=== PATIENT | male | born 1945 | race Hispanic/Latino ===

== ENCOUNTER 2018-05-12 18:55 | Observation (INO) | payer MEDICARE ==
[2018-05-12 19:30] LABS: #Basophils 0.1 thou/uL (0.0-0.2); #Eosinphils 0.1 thou/uL (0.0-0.7); #Lymphocytes 2.2 thou/uL (1.20-3.40); #Monocytes 0.7 thou/uL (0.11-0.59); #Neutrophils 7.1 thou/uL (1.40-6.50); %Basophils 0.6 % (0.0-1.0); %Eosinophils 0.8 % (0.0-10.0); %Lymphocytes 21.7 % (21.0-51.0); Hemoglobin 12.2 g/dL (14.0-18.0); Mean Corpuscular HGB CONC 35.1 g/dL (32.0-36.0); Mean Corpuscular Hemoglobin 29.9 pg (27.0-31.0); Mean Corpuscular Volume 85.3 fL (78.0-98.0); Mean Platelet Volume 8.6 fL (7.4-10.4); Platelet Count 192 thou/uL (130-400); RBC Distribution Width 12.2 % (11.5-14.5); Red Blood Cell (RBC) Count 4.09 mill/uL (4.70-6.10); White Blood Cell (WBC) Count 10.2 thou/uL (4.8-10.8)
[2018-05-12 19:56] LABS: CKMB 2.2 ng/mL (0-6.6); Troponin I Less than 0.010 ng/mL (< 0.028)
[2018-05-12 19:58] LABS: ALT (SGPT) 40 U/L (8-55); AST (SGOT) 34 U/L (5-34); Albumin 4.2 g/dL (3.4-4.8); Alkaline Phosphatase 129 U/L (40-150); Anion Gap 15 mmol/L (10-20); BUN (Urea Nitrogen) 15 mg/dL (8.4-25.7); Bilirubin, Total 0.3 mg/dL (0.2-1.2); CK (CPK) 273 U/L (30-200); Calc. Creatinine Clearance 0 mL/min (70-130); Calcium 9.2 mg/dL (7.8-10.44); Carbon Dioxide 22 mmol/L (23-31); Chloride 103 mmol/L (98-107); Estimated GFR-MDRD 64; Globulin 3.1 g/dL (2.4-3.5); Glucose 91 mg/dL (83-110); Lipase 131 U/L (8-78); Potassium 4.1 mmol/L (3.5-5.1); Protein, Total 7.3 g/dL (5.8-8.1); Sodium 136 mmol/L (136-145)
--- NOTE | 2018-05-12 21:29 | RAD ---
PORTABLE AP CHEST X-RAY 05/12/18 HISTORY: Chest pressure which started at 3 p.m. today. Chest pain. COMPARISON: 07/19/13. FINDINGS: Postsurgical changes related to median sternotomy are again seen. Vascular calcifications are seen in the thoracic aorta. The cardiac silhouette is magnified by projection. Pulmonary vasculature is with in normal limits. There is no focal consolidation or pleural fluid. However, there does appear to be slight increased interstitial density at the right lung base and findings could be related to superim position of structures including vasculature, but developing infiltrate at the right lung base is a p ossibility. Followup chest x-ray is recommended. Left lung is clear. No other interval change. IMPRESSION: Mild increased interstitial densities at the right lung base probably related to superimposition of s tructures, but due to slight asymmetry compared to left lung base, developing infiltrate cannot be ex cluded. Followup PA and lateral chest x-ray is recommended. POS: [facility]
[2018-05-12 22:47] LABS: Troponin I Less than 0.010 ng/mL (< 0.028)
[2018-05-13 00:10] VITALS: BMI 30.2
[2018-05-13] MEDS ORDERED: Fluticasone Propionate Nasal Spray 16 gm Bottle NASAL PRN (00:28)
[2018-05-13] MEDS ORDERED: Loratadine 10 MG TAB PO PRN (00:28)
[2018-05-13] MEDS ORDERED: traMADol HCl 50 MG TAB PO PRN (00:28)
[2018-05-13] MEDS ORDERED: Acetaminophen 325 MG TAB PO PRN (00:30)
[2018-05-13] MEDS ORDERED: Ondansetron HCl/PF 4 MG/2 ML Vial IVP PRN (00:30)
[2018-05-13] MEDS ORDERED: Dextrose 50% Abboject 50 ML SYRINGE SLOW IVP PRN (00:34)
[2018-05-13] MEDS ORDERED: HumaLOG 300 UNITS/3 ML VIAL SC PRN (00:34)
[2018-05-13] MEDS ORDERED: Dextrose 5% in Water 1,000 ML IV PRN (00:34)
[2018-05-13 02:07] LABS: Troponin I Less than 0.010 ng/mL (< 0.028)
[2018-05-13 03:27] LABS: #Eosinphils 0.2 thou/uL (0.0-0.7); #Lymphocytes 2.5 thou/uL (1.20-3.40); #Monocytes 0.9 thou/uL (0.11-0.59); #Neutrophils 4.4 thou/uL (1.40-6.50); %Basophils 0.6 % (0.0-1.0); %Eosinophils 2.2 % (0.0-10.0); %Lymphocytes 31.4 % (21.0-51.0); %Neutrophils 54.9 % (42.0-75.0); Hemoglobin 11.5 g/dL (14.0-18.0); Mean Corpuscular Hemoglobin 28.6 pg (27.0-31.0); Mean Corpuscular Volume 86.6 fL (78.0-98.0); Mean Platelet Volume 9.6 fL (7.4-10.4); Platelet Count 177 thou/uL (130-400); RBC Distribution Width 12.4 % (11.5-14.5); Red Blood Cell (RBC) Count 4.02 mill/uL (4.70-6.10)
[2018-05-13 03:36] LABS: Anion Gap 13 mmol/L (10-20); BUN (Urea Nitrogen) 13 mg/dL (8.4-25.7); Calc. Creatinine Clearance 100 mL/min (70-130); Calcium 9.3 mg/dL (7.8-10.44); Carbon Dioxide 23 mmol/L (23-31); Chloride 105 mmol/L (98-107); Estimated GFR-MDRD 84; Glucose 150 mg/dL (83-110); Potassium 3.6 mmol/L (3.5-5.1); Sodium 137 mmol/L (136-145)
[2018-05-13] MEDS ORDERED: Spironolactone 25 MG TAB PO SCH (08:00)
[2018-05-13 08:04] VITALS: BP 131/63
[2018-05-13 08:24] VITALS: TEMP 98.1
--- NOTE | 2018-05-13 08:49 | SS ---
ADMISSION/DISCHARGE NOTE PRIMARY CARE PHYSICIAN: Dr. Lloyd. JOURNEYMAN POWER PLANT OPERATOR: Dr. Claudio. CHIEF COMPLAINT: Chest pressure. HISTORY OF PRESENT ILLNESS: Mr. Rowell is a pleasant 72-year-old gentleman that has a history of joe nary artery disease, diabetes mellitus, and hypertension. He was in his usual state of health until around 2:00 p.m. yesterday when he started feeling some pressure in his chest and felt like his heart beat was irregular. He says he had been cleaning the back of his truck from about 8:00 a.m. to 2:00 p.m. when he stated that he was unable to get a completely cleaned and so he was planning on taking i t to the shop to have it cleaned and this is about when the pressure started. He says it was not estefany lly a pain. He also says he felt a little bit dizzy as well. There was no nausea, no vomiting or di aphoresis. He says that he rested a while and pressure went away on its own but then around 6:00 p.m . it started again. He also says he felt the pressure started again. When asked if this was similar to when he had a previous [place], he says it felt different. He says at that time he did not really hav e pain. He just "fell out of a chair" and was taken to the ER and was found to have coronary artery disease. He denies any reflux symptoms and says he takes Prilosec daily. He has had a cough which s he says was nonproductive and he did feel a funny feeling in his chest when he cough. Otherwise, no other symptoms, no PND, no orthopnea. No lower extremity edema. REVIEW OF SYSTEMS: All systems are reviewed and are negative except that mentioned in the history of present illness. PAST MEDICAL HISTORY: Significant for glaucoma, cataracts, coronary artery disease, diabetes mellitu s, and hypertension. PAST SURGICAL HISTORY: He has had an appendectomy, coronary bypass grafting, cholecystectomy and rec ent hernia repair. SOCIAL HISTORY: He is . He is a former smoker. He quit 2 years ago. He is and kyle s 2 children. FAMILY HISTORY: Significant for diabetes mellitus, kidney disease, heart disease in his mother and f ather. Siblings have diabetes and hypertension. ALLERGIES: No known drug allergies. HOME MEDICATIONS: Include Precose 50 mg t.i.d., Claritin 10 mg daily, Victoza 1.2 units subcu daily, Tramadol 50 mg q.6 as needed, spironolactone 25 mg daily, Prilosec over the counter 20 mg daily, met oprolol 37.5 mg twice daily, lisinopril 5 mg daily, Xalatan 1 drop to each eye at bedtime, isosorbide mononitrate 30 mg daily, NPH insulin 25 units twice a day, glipizide/metformin 5/500 one tablet twic e a day, Flonase nasal spray daily, Plavix 75 mg daily, Lipitor 20 mg at bedtime, aspirin 325 mg a da y. PHYSICAL EXAMINATION: GENERAL: He is alert and oriented. He appears to be in no acute distress. VITAL SIGNS: Blood pressure was 133/67, heart rate 73, respiratory rate of 20, temperature is 97.5 a nd O2 sat was 96% on room air. HEENT: Pupils are equal, round, and reactive. Extraocular muscles are intact. His sclerae are anic teric. Throat no erythema, no exudates. NECK: No adenopathy, no bruits. LUNGS: Clear to auscultation. There is no wheezing, no rales. CARDIOVASCULAR: He has a normal S1, S2. I did not appreciate an S3 or S4. No murmurs, clicks or ru bs. ABDOMEN: Obese, it is soft, it is nontender, nondistended. Positive for bowel sounds. No rebound, no guarding. EXTREMITIES: There is no clubbing, cyanosis, no edema. NEUROLOGIC: The exam is nonfocal with intact muscle strength SKIN AND INTEGUMENT: No skin changes. No rash. LABORATORY RESULTS: Sodium 137, potassium 3.6, chloride is 105, CO2 is 23, BUN of 13, creatinine 0.8 9 and glucose is 150. He has had two troponins which were less than 0.010. EKG was sinus rhythm wit h a right bundle branch block. ASSESSMENT AND PLAN: This is a pleasant 72-year-old gentleman who presents to the emergency room wit h some chest pressure and some mild dizziness. He has a history of hypertension and diabetes mellitu s and as a result was monitored overnight and ruled out. 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 He says it was negative and this was 2 months a go at the [facility]. He also has a orthodontic assistant that he sees regularly over there. T herefore, I suspect since he has been ruled out and has had a recent stress test this need not be rep eated. Therefore, he is stable for discharge as his symptoms have resolved and I suspect it could be related more to the exertion of cleaning the truck possibly, muscle strain or mild dehydration that caused this. He has been instructed to follow up with his primary care physician within a week and i f necessary, he can be referred to see his orthodontic assistant for potential cardiac catheterization.
[2018-05-13] MEDS ORDERED: Metoprolol Tartrate 25 MG TAB PO SCH (09:00)
[2018-05-13] MEDS ORDERED: Enoxaparin Sodium 40 MG/0.4 ML SYRINGE SC SCH (09:00)
[2018-05-13] MEDS ORDERED: Aspirin 325 MG TAB PO SCH (09:00)
[2018-05-13] MEDS ORDERED: NPH, Human Insulin Isophane 300 UNIT/3 ML VIAL SC SCH (09:00)
[2018-05-13] MEDS ORDERED: LIRAGLUTIDE 1.2 UNIT SC SCH (09:00)
[2018-05-13] MEDS ORDERED: Lisinopril 5 MG TAB PO SCH (09:00)
[2018-05-13] MEDS ORDERED: Clopidogrel Bisulfate 75 MG TAB PO SCH (12:00)
[2018-05-13] MEDS ORDERED: Atorvastatin Calcium 20 MG TAB PO SCH (21:00)
[2018-05-13] MEDS ORDERED: Latanoprost 0.005% Ophth Soln 2.5 ml Bottle EA EYE SCH (21:00)
== END 2018-05-13 09:03 | disposition home or self-care (01) ==
LOC: ERS 18:55 → 2SW 21:00
PROVIDERS: ADMIT Hospitalist; ATTEND Hospitalist
DX: R07.89 Other chest pain (principal); I25.10 Atherosclerotic heart disease of native coronary artery without angina pectoris; E11.9 Type 2 diabetes mellitus without complications; I10 Essential (primary) hypertension; Z87.891 Personal history of nicotine dependence; Z79.82 Long term (current) use of aspirin; Z79.02 Long term (current) use of antithrombotics/antiplatelets; Z79.899 Other long term (current) drug therapy
CPT/HCPCS: 71045; 80048; 80053; 82550; 82553; 82962; 83690; 83880; 84484 ×3; 85025 ×2; 93005; 99285; G0378; 36415; 36416; J1650; J1815

== ENCOUNTER 2018-08-23 18:04 | Observation (INO) | payer MEDICARE ==
[2018-08-23 19:13] LABS: Hemoglobin 11.3 g/dL (14.0-18.0); Mean Corpuscular HGB CONC 31.9 g/dL (32.0-36.0); Mean Corpuscular Hemoglobin 23.6 pg (27.0-31.0); Mean Platelet Volume 11.3 fL (7.4-10.4); Platelet Count 231 thou/uL (130-400); RBC Distribution Width 15.2 % (11.5-14.5); Red Blood Cell (RBC) Count 4.79 mill/uL (4.70-6.10); White Blood Cell (WBC) Count 10.8 thou/uL (4.8-10.8)
[2018-08-23 19:20] LABS: ALT (SGPT) 36 U/L (8-55); AST (SGOT) 33 U/L (5-34); Alkaline Phosphatase 148 U/L (40-150); Anion Gap 17 mmol/L (10-20); BUN (Urea Nitrogen) 18 mg/dL (8.4-25.7); Bilirubin, Total 0.2 mg/dL (0.2-1.2); Calc. Creatinine Clearance 0 mL/min (70-130); Calcium 9.1 mg/dL (7.8-10.44); Carbon Dioxide 19 mmol/L (23-31); Chloride 106 mmol/L (98-107); Estimated GFR-MDRD 81; Globulin 3.6 g/dL (2.4-3.5); Glucose 92 mg/dL (83-110); Potassium 3.8 mmol/L (3.5-5.1); Protein, Total 7.6 g/dL (5.8-8.1); Sodium 138 mmol/L (136-145)
[2018-08-23 19:24] LABS: CKMB 1.2 ng/mL (0-6.6); Troponin I Less than 0.010 ng/mL (< 0.028)
[2018-08-23 19:55] LABS: #Basophils 0.1 thou/uL (0.0-0.2); #Eosinphils 0.1 thou/uL (0.0-0.7); #Monocytes 0.8 thou/uL (0.11-0.59); #Neutrophils 7.8 thou/uL (1.40-6.50); %Basophils 1.1 % (0.0-1.0); %Eosinophils 0.8 % (0.0-10.0); %Lymphocytes 18.7 % (21.0-51.0); %Monocytes 7.7 % (0.0-10.0); %Neutrophils 71.8 % (42.0-75.0); Anisocytosis SLIGHT = 6-15 cells (100X) (0-5/hpf); Elliptocytes SLIGHT = 2-5 cells (100X) (0-1/hpf); Hypochromia SLIGHT = 6-15 cells (100X) (0-5/hpf); MDiff Complete? YES; PLT Morphology Comment Appears Adequate
--- NOTE | 2018-08-23 21:10 | RAD ---
SINGLE VIEW OF THE CHEST: 08/23/18 COMPARISON: 05/02/18 HISTORY: Swollen ankle and chest pain. FINDINGS: Single view of the chest shows a normal sized cardiomediastinal silhouette. The patient is status pos t sternotomy. There is no evidence of consolidation, mass, or pleural effusion. IMPRESSION: No evidence of acute cardiopulmonary disease. POS: [facility]
[2018-08-23 22:08] LABS: Troponin I 0.014 ng/mL (< 0.028)
--- NOTE | 2018-08-23 22:55 | ULT ---
LEFT LOWER EXTREMITY VENOUS ULTRASOUND WITH DOPPLER: 08/23/18 HISTORY: Left lower extremity swelling and edema. COMPARISON: None. TECHNIQUE: Garcia scale, color flow, doppler imaging with spectral waveform analysis is performed in the left lowe r extremity venous system. FINDINGS: There is compressibility, presence of flow and augmentation in the common femoral vein, femoral vein and popliteal vein. There is flow and augmentation in the posterior tibial vein. There is flow in the greater saphenous vein and profunda vein. IMPRESSION: No evidence of thrombus in the left lower extremity deep venous system. POS: [facility]
[2018-08-23 23:02] VITALS: BMI 31.8
[2018-08-23] MEDS ORDERED: Ondansetron ODT 4 MG TAB SL PRN (23:37)
[2018-08-23] MEDS ORDERED: Acetaminophen 325 MG TAB PO PRN (23:37)
[2018-08-23] MEDS ORDERED: Ondansetron PF 4 MG/2 ML Vial IVP PRN (23:37)
[2018-08-23] MEDS ORDERED: Dextrose 5% in Water 1,000 ML IV PRN (23:48)
[2018-08-23] MEDS ORDERED: Dextrose 50% Abboject 50 ML SYRINGE SLOW IVP PRN (23:48)
[2018-08-23] MEDS ORDERED: HumaLOG 300 UNITS/3 ML VIAL SC PRN (23:48)
[2018-08-23] MEDS ORDERED: traMADol HCl 50 MG TAB PO PRN (23:58)
[2018-08-24 00:56] LABS: Troponin I 0.015 ng/mL (< 0.028)
--- NOTE | 2018-08-24 02:06 | HP ---
CHIEF COMPLAINT: Chest tightness. HISTORY OF PRESENT ILLNESS: This is a 72-year-old male with past medical history of coronary artery disease, status post CABG, diabetes mellitus type 2, hernia repair, hypertension presenting with ches t tightness. Per the patient, he went to [facility] for left ankle swelling and pain and wh ile patient was at the [facility], patient stated that he started having chest tightness. Patient states that he normally gets chest tightness and per patient's Cardiology told him that he will have some chest discomfort since he had the coronary artery bypass and graft. However, patient states ramon t at this time the chest tightness that he was experiencing was very severe and he thought he was hav ing a heart attack. Patient stated that the stress care physician did EKG and was very worried, so h e was sent to our hospital to be evaluated. Of note, patient was seen in our hospital on 05/12/2018 for chest pressure and feeling of irregular heartbeat. At this time, patient states that he has had stress test 2 months ago and it was normal, but per the patient, he has not had an echo done. Mekhi gaona says that his clinical therapist is Dr. Claudio and he is located at [facility]. Patient's primary ca re physician is Dr. Lloyd. Patient states that the chest pain that he experienced this time around rad iated to the neck and to his jaw, it lasted about 5 minutes. It was localized at the chest and the q uality of the pain was tightness and pressure-like and he felt like he was having a heart attack, but patient denies any fever, chills, dizziness, headaches, chest palpitations, abdominal pain, constipa tion, diarrhea, nausea, vomiting. REVIEW OF SYSTEMS: Positive for chest pressure and tightness, otherwise as documented in the HPI. A ll other systems were reviewed and are negative. PAST MEDICAL HISTORY: Hypertension; coronary artery disease, status post CABG; diabetes mellitus, ty pe 2; history of kidney stones. PAST SURGICAL HISTORY: Hernia repair, CABG x4 vessels, cholecystectomy, appendectomy. PSYCHIATRIC HISTORY: No previous psychiatric history. SOCIAL HISTORY: Patient is a heavy truck mechanic. Patient is a former tobacco user, used to smoke cigarett es, quit less than 10 years ago. Patient denies any alcohol use. Patient denies any illicit drug us e. ALLERGIES: No known drug allergies. CURRENT MEDICATIONS: Patient takes acarbose 50 mg t.i.d., aspirin 325 mg daily, atorvastatin 20 mg d aily, clopidogrel 75 mg daily, Trulicity 0.75 mg/0.5 mL subcutaneous once a week, glipizide 5 mg b.i. d., Novolin 45 units b.i.d., isosorbide mononitrate extended release 30 mg a day, latanoprost, lisino pril 5 mg a day, loratadine 10 mg a day, metoprolol tartrate 25 mg patient takes 1.5 tabs b.i.d., ome prazole 20 mg, spironolactone 25 mg, Triamcinair 0.1% topical as needed. PHYSICAL EXAMINATION: VITAL SIGNS: Blood pressure is 149/79, pulse is 86, respiratory rate of 17, temperature of 98.3, O2 sat of 98 on room air. GENERAL: Patient is lying in bed comfortably, does not appear to have any acute distress. Patient i s speaking in full sentences. Patient was having his meals. HEENT: Normocephalic, atraumatic. Pupils are equally round, reactive to light. Extraocular movemen ts are intact. No scleral icterus. No conjunctival pallor. Mucous membranes are moist. NECK: Trachea is midline. Full range of motion, supple. No tenderness. LUNGS: Clear to auscultation bilaterally. No wheezing, no rales, no rhonchi appreciated. CARDIOVASCULAR: Positive S1, S2. Regular rate and rhythm. No murmurs, no gallops or rubs appreciat ed. Patient has a midsternal scar from previous surgery. ABDOMEN: Soft, nontender, nondistended. Positive bowel sounds in all quadrants. No masses apprecia scott. EXTREMITIES: Upper extremity, patient has 5/5 upper extremity strength, good pulses bilaterally. Lo wer extremity, patient has left ankle edema present about 1+ pitting edema and pain with deep palpati on at the ankle region and patient has decreased range of motion at the left ankle compared to the ri t. Patient has 5/5, right lower extremity strength and good range of motion at the lower extremity . Good pulses bilaterally at the lower extremities. NEUROLOGIC: Cranial nerves II through XII grossly intact. No neurologic deficits noted. SKIN: Referred to lower extremity description. PSYCHIATRIC: Patient is alert, oriented x3, not in acute distress. Normal affect. LABORATORY DATA: WBC is 10.8, hemoglobin is 11.3, hematocrit is 35.4, MCV is 74.0, RDW 15.2. Sodium is 138, potassium is 3.8, chloride is 106, carbon dioxide of 19, anion gap of 17, BUN is 18, creatin ine is 0.92, GFR is 81, glucose is 92. Total bilirubin 0.2, AST 33, ALT is 36. Troponins x3 is 0.01 0, 0.014, 0.015. IMAGIN. Chest x-ray showed no acute cardiopulmonary process. 2. Ankle x-ray showed nonspecific soft tissue swelling, no significant degenerative changes or fract ure. 3. Vascular ultrasound is negative for thrombus in the left lower extremity. ASSESSMENT AND PLAN: This is a 72-year-old male being admitted for 1. Chest tightness, we will rule out acute coronary syndrome. Patient has been given aspirin. We h ave ordered for echo. We will follow up on echo results. We will monitor the patient possibly disch arge the patient in the a.m. if everything comes back negative. We will follow up on cardiac enzymes . EKG in the past, where the patient has a history of right bundle branch block. We will get anothe r EKG. We have compared the previous EKG to the recent EKG and patient will have same EKG, which is unchanged from before. Patient also had a stress test in the past, which has been negative. We will continue to monitor the patient closely. 2. Left lower ankle edema and tenderness. Etiology unclear at this time. Ankle x-ray has been nega tive. We will continue to give patient pain medication and admitting the patient conservatively. 3. We will continue the patient on his current medications and we will monitor the patient closely.
[2018-08-24 04:58] LABS: #Basophils 0.1 thou/uL (0.0-0.2); #Eosinphils 0.1 thou/uL (0.0-0.7); #Lymphocytes 2.4 thou/uL (1.20-3.40); #Monocytes 0.8 thou/uL (0.11-0.59); #Neutrophils 4.2 thou/uL (1.40-6.50); %Eosinophils 1.9 % (0.0-10.0); %Lymphocytes 31.3 % (21.0-51.0); %Monocytes 9.9 % (0.0-10.0); %Neutrophils 55.9 % (42.0-75.0); Hemoglobin 10.6 g/dL (14.0-18.0); Mean Corpuscular HGB CONC 30.9 g/dL (32.0-36.0); Mean Corpuscular Hemoglobin 22.9 pg (27.0-31.0); Mean Corpuscular Volume 74.1 fL (78.0-98.0); Mean Platelet Volume 11.1 fL (7.4-10.4); Platelet Count 211 thou/uL (130-400); RBC Distribution Width 15.1 % (11.5-14.5); Red Blood Cell (RBC) Count 4.64 mill/uL (4.70-6.10); White Blood Cell (WBC) Count 7.6 thou/uL (4.8-10.8)
[2018-08-24 05:02] LABS: Anion Gap 9 mmol/L (10-20); BUN (Urea Nitrogen) 16 mg/dL (8.4-25.7); Calc. Creatinine Clearance 97 mL/min (70-130); Calcium 9.1 mg/dL (7.8-10.44); Carbon Dioxide 26 mmol/L (23-31); Chloride 103 mmol/L (98-107); Estimated GFR-MDRD 79; Glucose 222 mg/dL (83-110); Potassium 4.1 mmol/L (3.5-5.1); Sodium 134 mmol/L (136-145)
[2018-08-24] MEDS ORDERED: Aspirin 325 MG TAB PO SCH ×2 (08:00→09:00)
[2018-08-24] MEDS ORDERED: Enoxaparin Sodium 40 MG/0.4 ML SYRINGE SC SCH (09:00)
[2018-08-24] MEDS ORDERED: Famotidine 20 MG TAB PO SCH (09:00)
[2018-08-24] MEDS ORDERED: Lisinopril 5 MG TAB PO SCH (09:00)
[2018-08-24] MEDS: Metoprolol Tartrate 25 MG TAB PO SCH ×2 (09:03→11:35)
[2018-08-24 09:24] LABS: Iron Binding Capacity, Total 414 mcg/dL (261-462)
[2018-08-24 09:25] LABS: Iron 16 ug/dL (65-175)
[2018-08-24] MEDS ORDERED: Clopidogrel Bisulfate 75 MG TAB PO SCH (12:00)
[2018-08-24] MEDS ORDERED: Iron Sucrose Complex 200 MG in Sodium Chloride 0.9% 250 ML 250 ML IVPB SCH (12:30)
[2018-08-24] MEDS ORDERED: Iron, Sodium Ferric Gluconate 250 MG, Admixture Fee 1 EACH in Sodium Chloride 0.9% 250 ... IVPB SCH (12:30)
[2018-08-24 16:04] VITALS: BP 123/57; TEMP 98.3
[2018-08-24] MEDS ORDERED: Latanoprost 0.005% Ophth Soln 2.5 ml Bottle EA EYE SCH (21:00)
[2018-08-24] MEDS ORDERED: Atorvastatin Calcium 20 MG TAB PO SCH (21:00)
--- NOTE | 2018-08-25 02:45 | DIS ---
DATE OF ADMISSION: 08/24/2018 DATE OF DISCHARGE: 08/24/2018 CONDITION AT THE TIME OF DISCHARGE: Stable and improved. DISCHARGE DIAGNOSES: Remained the same as admission diagnoses. 1. Chest tightness, acute coronary syndrome ruled out. 2. Hypertension. 3. Coronary artery disease. 4. Diabetes. DISCHARGE MEDICATIONS: Same as admission medications. Please see admission history and physical dic tated by Dr. Tejada for further details. No changes were made. PRIMARY CARE PHYSICIAN: Law Coronel M.D. PRIMARY PROJECT DIRECTOR: Jamarcus Brannon D.O. PROCEDURES DONE IN THE HOSPITAL: 1. Transthoracic echocardiogram, which shows EF of 60% to 65% and probably diastolic dysfunction, ot herwise normal echo. 2. Left lower extremity ultrasound, which is negative for DVT. HISTORY OF PRESENTING ILLNESS: Mr. Rowell is a 72-year-old male with past medical history of coronary artery disease, status post CABG; hypertension; diabetes; and history of kidney stone; who presented to the emergency room with complaints of chest tightness. He presented to urgent care with these sy mptoms and was told to come to the [facility] even though his apartment groundskeeper and primary care physician are over at [facility] in [place]. He was seen for similar complaints i our [facility] about 3 months ago on 05/13/2018. Upon presentation, he was hemodynamically stable and cardiac enzyme, EKG, chest x-ray were within nor mal limit. He was admitted for further evaluation. He was hemodynamically stable. Ankle x-ray was done which showed soft tissue swelling without any changes acutely. His labs were within normal sirena maría. Please see admission history and physical for further details. Serial cardiac enzymes were done and he was monitored on telemetry unit. His troponin remained negat otis x3. He was found to be anemic with a hemoglobin of 11.3, which seems to be his baseline. Iron l evels were checked and his iron levels were very low at 16. He was given IV iron prior to discharge. Echo was done and it was unremarkable. The patient was otherwise asymptomatic throughout his hospita lization and there were no adverse events on the tele monitoring either. He was instructed to follow with primary apartment groundskeeper at [facility] and was encouraged to go to [facility] ER as his medical care is over there to prevent unnecessary cost of care. At this ti me, he has no explanation of his symptoms other than that possibly iron deficiency anemia. He will f ollow up with PCP with this regards. He was seen and examined prior to discharge. PHYSICAL EXAMINATION: VITAL SIGNS: This morning, temperature 97.7, heart rate 60, respirations 18, saturating 97% on room air, blood pressure 155/69. GENERAL: No acute distress. CHEST: Clear to auscultation bilaterally. CARDIOVASCULAR: Rate and rhythm is regular. EXTREMITIES: Free of any cyanosis, clubbing, or edema. Discharge hemoglobin 10.6 with microcytic hypochromic indices. Serum chemistry shows blood sugar 194 , otherwise unremarkable. Troponin 0.015.
--- NOTE | 2018-08-27 23:33 | EKG ---
Test Reason : Blood Pressure : / mmHG Vent. Rate : 081 BPM Atrial Rate : 081 BPM P-R Int : 164 ms QRS Dur : 142 ms QT Int : 412 ms P-R-T Axes : 043 -11 051 degrees QTc Int : 478 ms Normal sinus rhythm Right bundle branch block Possible Inferior infarct , age undetermined Abnormal ECG Confirmed by EDWARD OCONNELL, EMILIA ([id number]), editor dictionary KATHY AQUINO ([id number]) on 08/27/2018 11:33:34 PM Referred By: Confirmed By:EMILIA LEON MD
== END 2018-08-24 17:03 | disposition home or self-care (01) ==
LOC: ERS 18:04 → 2SW 21:15
PROVIDERS: ADMIT Internal Medicine; ATTEND Internal Medicine
DX: R07.89 Other chest pain (principal); I25.10 Atherosclerotic heart disease of native coronary artery without angina pectoris; E11.9 Type 2 diabetes mellitus without complications; I10 Essential (primary) hypertension; Z87.891 Personal history of nicotine dependence; Z79.02 Long term (current) use of antithrombotics/antiplatelets; Z79.4 Long term (current) use of insulin; Z79.82 Long term (current) use of aspirin; Z79.899 Other long term (current) drug therapy; Z95.1 Presence of aortocoronary bypass graft
CPT/HCPCS: 71045; 80048; 80053; 82553; 82962 ×2; 83540; 83550; 84484 ×3; 85025 ×2; 93005; 93306; 93971; 96365; 96366; 96372; 99285; G0378 ×2; 36415; 36416; J1650; J2916; J7050

== ENCOUNTER 2020-11-09 20:07 | Inpatient (IN) | payer MEDICARE ==
[2020-11-09 20:58] LABS: #Basophils 0.1 thou/uL (0.0-0.2); #Eosinphils 0.1 thou/uL (0.0-0.7); #Lymphocytes 1.9 thou/uL (1.20-3.40); #Monocytes 0.5 thou/uL (0.11-0.59); #Neutrophils 5.2 thou/uL (1.40-6.50); %Basophils 0.9 % (0.0-1.0); %Eosinophils 1.3 % (0.0-10.0); %Lymphocytes 23.8 % (21.0-51.0); %Monocytes 6.9 % (0.0-10.0); %Neutrophils 67.1 % (42.0-75.0); Hemoglobin 12.4 g/dL (14.0-18.0); Mean Corpuscular HGB CONC 32.4 g/dL (32.0-36.0); Mean Corpuscular Hemoglobin 23.8 pg (27.0-31.0); Mean Corpuscular Volume 73.3 fL (78.0-98.0); Mean Platelet Volume 11.3 fL (7.4-10.4); Platelet Count 208 thou/uL (130-400); RBC Distribution Width 15.9 % (11.5-14.5); Red Blood Cell (RBC) Count 5.22 mill/uL (4.70-6.10); White Blood Cell (WBC) Count 7.8 thou/uL (4.8-10.8)
[2020-11-09 21:17] LABS: ALT (SGPT) 35 U/L (8-55); AST (SGOT) 28 U/L (5-34); Albumin 3.7 g/dL (3.4-4.8); Alkaline Phosphatase 127 U/L (40-110); Anion Gap 17 mmol/L (10-20); Anisocytosis SLIGHT = 6-15 cells (100X) (0-5/hpf); BUN (Urea Nitrogen) 13 mg/dL (8.4-25.7); Bilirubin, Total 0.3 mg/dL (0.2-1.2); Calc. Creatinine Clearance 0 mL/min (70-130); Calcium 8.6 mg/dL (7.8-10.44); Carbon Dioxide 22 mmol/L (23-31); Chloride 103 mmol/L (98-107); Elliptocytes SLIGHT = 2-5 cells (100X) (0-1/hpf); Glucose 218 mg/dL (83-110); Large Platelets SLIGHT; MDiff Complete? YES; Microcytosis SLIGHT = 6-15 cells (100X) (0-5/hpf); Platelet Morphology Comment Appears Adequate; Protein, Total 6.7 g/dL (5.8-8.1); Sodium 138 mmol/L (136-145)
[2020-11-09] MEDS ORDERED: Metoclopramide HCl 10 MG/2 ML VIAL ONE (21:37)
[2020-11-09] MEDS ORDERED: Acetaminophen 500 MG TAB ONE (21:37)
--- NOTE | 2020-11-09 21:59 | RAD ---
PORTABLE CHEST ONE VIEW: 11/09/20 at 9:46 p.m. HISTORY: Left sided chest pain. COMPARISON: 08/23/18. FINDINGS: There are changes of median sternotomy. The heart size is borderline. The lungs are expanded without lobar consolidation, pneumothoraces, cayla pulmonary edema or pleural effusions. IMPRESSION: No acute process. POS: [facility]
--- NOTE | 2020-11-09 22:15 | CT ---
CT BRAIN WITHOUT CONTRAST: HISTORY: Dizziness. Left-sided face pain, left arm pain and left leg pain. FINDINGS: There are changes of cortical atrophy. No evidence of acute infarct, hemorrhage, midline shift or abn ormal extra-axial fluid collections is seen. The ventricular size is appropriate and the basilar cisterns are patent. The bony calvarium is intact. The visualized paranasal sinuses and mastoid air c ells are well aerated. IMPRESSION: No CT evidence of acute intracranial process.
--- NOTE | 2020-11-10 00:11 | PDOC.FPRHP ---
- History of Present Illness Chief Complaint: L arm, jaw pain History of Present Illness: This is a 75yo M with PMH of CAD, DM2, hx of NH with 4 vessel CABG who presents to the ER with CC of left temporal, neck, jaw, arm, and leg pain. This started about 2 days ago when he was watching TV and has been constant, although Tylenol and ASA have helped. Describes pain as dull. He came in today because he felt the pain was getting worse, rating it as 6/10, and tylenol did not help today. He describes an episode of confusion today, as well. He said he was texting a friend when all of a sudden he felt confused and was not able to type out the words, however he was able to talk to his son to tell him he wanted to go to the hospital. He reports some weakness in his left leg. Denies fever, chills, chest pain, abd pain, palpitations, LE swelling. Denies hx of stroke, although his 69yo brother had one 4mo ago. ED Course: Tylenol, Metoclopramide 10mg IV - Allergies/Adverse Reactions Allergies Allergy/AdvReac Type Severity Reaction Status Date / Time No Known Allergies Allergy Verified 11/10/20 09:26 - Home Medications Medication Instructions Recorded Confirmed Type Acarbose [Precose] 50 mg PO TID-WM 07/19/13 08/24/18 History Aspirin 325 mg PO DAILY 07/19/13 08/24/18 History Isosorbide Mononitrate [Imdur ER] 30 mg PO DAILY 07/19/13 08/24/18 History Latanoprost [Xalatan 0.005% Ophth 1 drop EA EYE HS 07/19/13 08/24/18 History Soln] Lisinopril [Zestril] 5 mg PO DAILY 07/19/13 08/24/18 History Loratadine [Claritin] 10 mg PO DAILY 07/19/13 08/24/18 History Metoprolol Tartrate [Lopressor] 37.5 mg PO BID 07/19/13 08/24/18 History Omeprazole Magnesium [Prilosec OTC] 20 mg PO DAILY 07/19/13 08/24/18 History Spironolactone [Aldactone] 25 mg PO DAILY 07/19/13 08/24/18 History traMADol HCl [Ultram] 50 mg PO Q6H PRN 09/07/13 08/24/18 History Clopidogrel Bisulfate [Clopidogrel] 75 mg PO 1200 05/13/18 08/24/18 History Glipizide/Metformin HCl 1 tab PO BID 05/13/18 08/24/18 History [glipiZIDE/metFORMIN HCl] Insulin, Isophane Human (NPH) 60 units SC BID 05/13/18 08/24/18 History [NovoLIN N] Aspirin [Ecotrin Low Strength] 81 mg PO DAILY #30 tab 11/10/20 Rx Atorvastatin Calcium [Lipitor] 40 mg PO HS #30 tab 11/10/20 Rx - History PMHx: CAD, DM2, HTN, NH, hx of kidney stones, glaucoma PSHx: CABG x4, appendectomy, cholecystectomy, hernia repair FHx: brother had stroke at age 69 Social: denies alcohol use, drug use, former tobacco user - quit less than 10 years ago - Review of Systems General: denies: fever/chills, weight/appetite/sleep changes, night sweats, fatigue Eyes: denies: eye pain, vision changes ENT: reports: nasal congestion. denies: rhinorrhea Respiratory: denies: cough, congestion, shortness of breath, exercise intolerance Cardiovascular: reports: orthopnea. denies: chest pain, palpitation, edema, paroxysmal nocturnal dyspnea Gastrointestinal: reports: nausea. denies: vomiting, diarrhea, constipation, abdominal pain, GI bleeding Genitourinary: denies: dysuria Skin: denies: rashes, lesions, jaundice, itching Musculoskeletal: reports: pain. denies: tenderness, stiffness, swelling Neurological: reports: weakness. denies: numbness, syncope, seizure - Vital signs BP: 157/73, MAP: 101, Pulse: 75, Resp: 18, Pain: 3, O2 sat: 96 on (Room Air) - Physical Exam Constitutional: NAD, awake, alert and oriented, well developed HEENT: normocephalic and atraumatic, EOMI, grossly normal vision, grossly normal hearing, MMM -HEENT: L pupil not reactive - would not constrict with ipsi- or contra-lateral exposure to light. R pupil reactive. B/l horizontal nystagmus. Peripheral vision intact, b/l Sensation intact on face b/l No facial droop. Able to resist attempted forceful opening of [place]. Neck: supple, FROM, trachea midline Chest: no-tender to palpation Heart: RRR, normal S1/S2, no murmurs/rubs/gallops, pulses present, no edema Lungs: CTAB, no respiratory distress, good air movement, no rales/rhonchi, no wheezing Abdomen: soft, non-tender, bowel sounds present, no masses/distention, no hernias Musculoskeletal: normal structure, normal tone, ROM grossly normal Neurological: CN II-XII intact, normal sensation -Neurological: No dysmetria on [id number] test. No word-finding difficulty on exam. 5/5 strength in b/l UE and LE. Skin: no rash/lesions, good turgor, capillary refill <2 seconds Heme/Lymphatic: no unusual bruising or bleeding Psychiatric: normal mood and affect, good judgment and insight, intact recent and remote memory FMR H&P: Results - Labs Result Diagrams: 11/09/20 20:30 11/09/20 20:30 Lab results: A1c 9.1 Trops neg x3 BNP 16 Lipid panel: TG 262, HDL 24, otherwise nml WBC 7.8 thou/uL (4.8-10.8) 11/09/20 20:30 Hgb 12.4 g/dL (14.0-18.0) L 11/09/20 20:30 Hct 38.3 % (42.0-52.0) L 11/09/20 20:30 MCV 73.3 fL (78.0-98.0) L 11/09/20 20:30 Plt Count 208 thou/uL (130-400) 11/09/20 20:30 Neutrophils % 67.1 % (42.0-75.0) 11/09/20 20:30 Sodium 138 mmol/L (136-145) 11/09/20 20:30 Potassium 4.0 mmol/L (3.5-5.1) 11/09/20 20:30 Chloride 103 mmol/L (98-107) 11/09/20 20:30 Carbon Dioxide 22 mmol/L (23-31) L 11/09/20 20:30 BUN 13 mg/dL (8.4-25.7) 11/09/20 20:30 Creatinine 0.96 mg/dL (0.7-1.3) 11/09/20 20:30 Glucose 218 mg/dL (83-110) H 11/09/20 20:30 Calcium 8.6 mg/dL (7.8-10.44) 11/09/20 20:30 Total Bilirubin 0.3 mg/dL (0.2-1.2) 11/09/20 20:30 AST 28 U/L (5-34) 11/09/20 20:30 ALT 35 U/L (8-55) 11/09/20 20:30 Alkaline Phosphatase 127 U/L (40-110) H 11/09/20 20:30 Serum Total Protein 6.7 g/dL (5.8-8.1) 11/09/20 20:30 Albumin 3.7 g/dL (3.4-4.8) 11/09/20 20:30 - Radiology Interpretation CT scan - head Status: report reviewed by me (no acute process) Chest x-ray Status: report reviewed by me (no acute process) FMR H&P: A/P - Plan This is a 75M presenting to the ED for L head, arm, leg pain and a transient episode of confusion, admitted for ACS and stroke r/o. Atypical CP - L head, jaw, neck, arm, leg pain while watching TV - Significant heart hx: CAD, NH with 4 vessel CABG - EKG shows complete RBBB and nonspecific T wave changes - On tele - Monitor for recurrence of CP Possible TIA - Episode of confusion and word-finding difficulty - L pupil non-reactive to light - CT head neg for acute findings - CTA w/wo contrast of head and neck pending - MRI brain pending - q4h neuro checks, NIH stroke scale, bedside dysphagia screen, fall precautions - DVT ppx SCDs T2DM - A1c 9.1 - Continue home insulin once regimen confirmed - Moderate and bedtime SSI - Hypoglycemia protocol, ACHS checks - DM education HTN - Continue home meds once med rec'd - Monitor vitals Chronic conditions CAD: continue home meds once med rec'd Glaucoma: continue home meds once med rec'd. Avoid antihistamines, antimuscarinics, beta agonists Hx of renal stones Dispo: stroke obs IVF: None Diet: HH-LS GI ppx: None DVT ppx: SCDs Code: Full PCP: [facility] FMR H&P: Upper Level - Plan Date/Time: 11/10/20 0009 I, Annabelle Velez MD, have evaluated this patient and agree with findings/plan as outlined by digital marketing intern resident. Pertinent changes/additions are listed here. This is a 75yo m here today with CC of left sided pain - pain in his left congregation, arm, and leg. This started about 2-3 days ago. He has taken tylenol intermittently which did help some. Today, he thought it was getting worse which is why he came in. He also reported an episode of confusion earlier today. He states that he was texting a friend and then all of a sudden he couldn't type and he felt confused. He was able to talk to his son normally and explain to him that he wanted to go to the hospital to be checked out. Reports headache and neck pain. Reports hx of pinched nerve in his neck. Denies any chest pain at the time. Denies SOB, palpitations. Hx of heart attack on '05, but this does not feel similar. PE: Neuro exam - less constriction with left pupil. Sensation intact on face, upper, lower extremities. No tongue deviation. Strength 5/5 upper and lower extremities. RRR, CTAB, soft abd, nontender. Will admit patient to stroke, obs to r/o TIA vs CVA. CT brain neg. Will get MRI to evaluate for CVA. CTA head/neck. Atypical chest pain - Trop neg x 1, will trend. No EKG changes. Will continue medications for chronic conditions. Dispo: admit to stroke, obs PCP: Berna ([facility]) Code: Full Case discussed with Dr. Brooks Addendum - Attending - Attending Attestation Date/Time: 11/09/20 2961 I personally evaluated the patient and discussed the management with Dr. Sveta Ashford. I agree with the History, Examination, Assessment and Plan documented above with any addition or exceptions noted below. The patient presented after headache for 2 days followed by episode of confusion and change in sensation in left jaw arm and leg. Will work up for possible stroke with cta head/neck and MRI brain. Trending trops. I did evaluate the patient on 11/09 in the ER.
[2020-11-10 00:26] LABS: Troponin I Less than 0.010 ng/mL (< 0.028)
[2020-11-10] MEDS ORDERED: Ondansetron ODT 4 MG TAB PO PRN (00:41)
[2020-11-10] MEDS ORDERED: Acetaminophen 325 MG TAB PO PRN (00:41)
[2020-11-10] MEDS ORDERED: Acetaminophen 650 MG Suppository PR PRN (00:41)
[2020-11-10] MEDS ORDERED: Ondansetron PF 4 MG/2 ML Vial IVP PRN (00:41)
[2020-11-10] MEDS ORDERED: Dextrose 5% in Water 1,000 ML IV PRN (00:49)
[2020-11-10] MEDS ORDERED: HumaLOG 300 UNITS/3 ML VIAL SC PRN ×2 (00:49)
[2020-11-10] MEDS ORDERED: Dextrose 50% Abboject 50 ML SYRINGE SLOW IVP PRN (00:49)
[2020-11-10] MEDS ORDERED: Aspirin Chewable 81 MG TAB PO SCH (01:00)
[2020-11-10] MEDS ORDERED: Boostrix 0.5 ML (Tdap) VIAL ONE (02:17)
[2020-11-10 03:08] LABS: Hemoglobin A1c 9.1 % (4.0-6.0)
[2020-11-10] MEDS ORDERED: Aspirin Chewable 81 MG TAB ONE ×2 (03:21→08:38)
[2020-11-10 03:44] LABS: Cardiac Risk 4.5 (Less than 4.5)
[2020-11-10 03:47] LABS: Troponin I Less than 0.010 ng/mL (< 0.028)
[2020-11-10 06:21] LABS: SARS-CoV-2 PCR by NAA Not Detected (NotDetected)
--- NOTE | 2020-11-10 08:41 | PDOC.FM ---
- Subjective Subjective: Pt states he is feeling well. No CP. no weakness. He reports he is able to text and communicate well - Objective Result Diagrams: 11/09/20 20:30 11/09/20 20:30 Phys Exam - Physical Examination Constitutional: NAD HEENT: moist MMs, sclera anicteric Neck: supple, full ROM Respiratory: no wheezing, clear to auscultation bilateral Cardiovascular: RRR, no significant murmur Gastrointestinal: soft, non-tender Musculoskeletal: no edema, pulses present Neurological: non-focal, normal sensation, moves all 4 limbs slight slurred speech Psychiatric: normal affect, A&O x 3 Skin: no rash, normal turgor Dx/Plan - Plan Plan: TIA vs. CVA A- Sx of word finding difficulty and pupilary asymetry are resolved. CT head neg for acute findings P- CTA w/wo contrast of head and neck pending - MRI brain pending - q4h neuro checks, NIH stroke scale, bedside dysphagia screen, fall precautions - DVT ppx lovenox - increase home atorvastatin to high dose T2DM A- A1c 9.1. He does not know any of his meds P- Continue home insulin once regimen confirmed. Nurse calling pharmacy - Moderate and bedtime SSI - Hypoglycemia protocol, ACHS checks - DM education HTN - Continue home meds once med rec'd - Monitor vitals Arm pain, resolved -L head, jaw, neck, arm, leg pain while watching TV, resolved. EKG shows complete RBBB and nonspecific T wave changes. Considering significant heart hx: CAD, [place] with 4 vessel CABG, will do ACS workup if he ever develops CP Chronic conditions CAD: continue home meds once med rec'd Glaucoma: continue home meds once med rec'd. Avoid antihistamines, ant imuscarinics, beta agonists Hx of renal stones CODE: FULL Addendum - Attending - Attending Attestation Date/Time: 11/10/20 1650 I personally evaluated the patient and discussed the management with Dr. Felton. I agree with the History, Examination, Assessment and Plan documented above with any addition or exceptions noted below. MRI and CTA ordered to further evaluate symptoms. Pt's nurse is going to attempt to get his med list so that we can restart home meds. A1s is elevated, will need adjustment to diabetic regimen.
[2020-11-10] MEDS ORDERED: Aspirin 81 mg Enteric Coated Tablet PO SCH (09:00)
[2020-11-10 09:26] VITALS: BMI 32.6
--- NOTE | 2020-11-10 09:33 | CT ---
EXAM: CT head without IV contrast CT angiogram head and neck with IV contrast and 3-D reconstructions PROVIDED CLINICAL HISTORY: Left arm and jaw pain. Brief episode of confusion and word finding difficulties. COMPARISON: Noncontrast CT head on 11/09/2020 FINDINGS: Noncontrast CT head: There is no evidence of a hemorrhage, acute cortical infarction, mass effect, or midline shift. Scatt ered minimal hypodensities are seen within the periventricular and subcortical white matter which are nonspecific but likely reflective of mild chronic small vessel ischemic changes. Mild cerebral vo lume loss is present. The ventricular system is normal in size, shape, and position. Small mucous retention cysts present right maxillary antrum. No significant interval change from prio r exam. CT angiogram head and neck: Prominent vascular calcifications are seen in the aortic arch and involving the coronary arteries. Po stoperative changes related to CABG are noted. Common origin of the innominate and left common carotid artery are noted. There is partial obscuratio n of portions of the most proximal left common carotid artery as well as left subclavian artery due to dense venous contrast resulting in artifact through these regions. However, the visualized portion s of the left subclavian artery are patent. The innominate and right subclavian artery are patent. Bilateral common carotid arteries are patent. Minimal vascular calcifications are seen at the carotid artery bifurcations. Bilateral internal carotid arteries are patent. The bilateral vertebral arteries are patent. The left vertebral artery is dominant. The basilar artery and posterior cerebral arteries are patent. Dense vascular calcifications are seen in the carotid siphons. The bilateral middle cerebral and anterior cerebral arteries are patent. No focal stenosis or branch occlusion is seen. No intracranial aneurysm is seen. There were groundglass densities seen throughout the visualized upper lung zones, but this exam is ob tained in expiratory phase imaging, and findings are likely attributable to volume loss. IMPRESSION: 1. No acute intracranial abnormality is demonstrated. 2. No focal stenosis or branch occlusion is seen involving the vertebral basilar system or [place]. 3. Patent bilateral internal carotid arteries.
[2020-11-10] MEDS ORDERED: Enoxaparin Sodium 40 MG/0.4 ML SYRINGE ONE (09:36)
[2020-11-10] MEDS ORDERED: Iopamidol-370 76% 500 ML 1 ML ONE (09:44)
[2020-11-10] MEDS: Enoxaparin Sodium 40 MG/0.4 ML SYRINGE SC SCH (09:47)
--- NOTE | 2020-11-10 10:48 | MRI ---
EXAM: MRI Brain WO Con PROVIDED CLINICAL HISTORY: Brief episode of confusion and word finding difficulties. This has now resolved. Coronary artery dise ase. COMPARISON: CT head 11/10/2020 FINDINGS: There are scattered punctate and patchy areas of increased FLAIR and T2-weighted signal intensity wit hin the periventricular and subcortical white matter which are nonspecific but likely reflective of chronic small vessel ischemic changes. No areas of restricted diffusion are seen to suggest an acute infarction. There is a linear area of decreased signal intensity within the inferior left frontal lobe on gradient echo sequence and on T2-weighted imaging may be related to site of prior hemorrhage with hemosiderin deposition in this region. The septum pellucidum and third ventricle are in the midline. Mild cerebral volume loss is present. T he ventricular system is normal in size, shape, and position for the degree of sulcal atrophy. Distal left vertebral artery flow-void is dominant compared to the right. There are otherwise appropr iate flow voids involving the large intracranial vessels at the base of the brain. [place] lenses are not visualized. Minimal mucosal thickening is seen in a few ethmoidal air cells. The mastoid effusions are present on the left. Meniscal base has a normal MRI appearance. IMPRESSION: 1. No acute intracranial abnormality demonstrated. 2. Chronic small vessel ischemic changes and cerebral volume loss. 3. Linear area of hemosiderin deposition inferior left anterior frontal lobe.
[2020-11-10] MEDS ORDERED: Clopidogrel Bisulfate 75 MG TAB ONE (16:21)
[2020-11-10] MEDS: Clopidogrel Bisulfate 75 MG TAB PO SCH (16:22)
[2020-11-10] MEDS ORDERED: HumaLOG 300 UNITS/3 ML VIAL ONE (16:54)
[2020-11-10] MEDS: glipiZIDE 5 MG TAB PO SCH (20:30)
[2020-11-10] MEDS: Metoprolol Tartrate 25 MG TAB PO SCH (20:30)
[2020-11-10] MEDS: metFORMIN 500 MG TAB PO SCH (20:30)
[2020-11-10] MEDS: NPH, Human Insulin Isophane 300 UNIT/3 ML VIAL SC SCH (20:31)
[2020-11-10] MEDS ORDERED: METFORMIN PO SCH (21:00)
[2020-11-10] MEDS ORDERED: GLIPIZIDE PO SCH (21:00)
[2020-11-10] MEDS ORDERED: Latanoprost 0.005% Ophth Soln 2.5 ml Bottle EA EYE SCH (21:00)
[2020-11-10] MEDS ORDERED: [UNRECOGNIZED DRUG - OTHER] PO SCH (21:00)
[2020-11-10] MEDS ORDERED: Atorvastatin Calcium 40 MG TAB PO SCH (21:00)
--- NOTE | 2020-11-11 06:26 | PDOC.FM ---
- Subjective Subjective: Patient sitting up in bed and has no complaints. Denies dysarthria, slurred speech, CP, SOB, vision changes. - Objective MAR Reviewed: Yes Vital Signs & Weight: Vital Signs (12 hours) Temp Pulse Resp BP Pulse Ox 11/11/20 04:00 98.5 F 71 16 134/71 96 11/11/20 00:08 145/70 H 11/10/20 20:09 97.4 F L 67 16 168/76 H 100 11/10/20 20:00 100 Weight Weight 97.4 kg Result Diagrams: 11/09/20 20:30 11/09/20 20:30 Phys Exam - Physical Examination Constitutional: NAD HEENT: PERRLA, moist MMs Neck: no nodes, full ROM Respiratory: no wheezing, clear to auscultation bilateral Cardiovascular: RRR, no significant murmur Gastrointestinal: soft, non-tender, positive bowel sounds Musculoskeletal: no edema, pulses present Neurological: moves all 4 limbs Psychiatric: normal affect, A&O x 3 Dx/Plan - Plan Plan: likely TIA A- Sx of word finding difficulty and pupilary asymetry are resolved. CT head neg for acute findings P- CTA w/wo contrast of head and neck pending - MRI brain negative for acute process, chronic small vessel change and cerebral volume loss, linear area of hemosiderin deposition in inferior left anterior frontal love - CTA brain negative for acute findings, negative focal stenosis, patent bilateral internal carotids - echo pending - q4h neuro checks, NIH stroke scale, bedside dysphagia screen, fall precautions - DVT ppx lovenox - increase home atorvastatin to high dose, ASA T2DM A- A1c 9.1 P- Continue home meds - Moderate and bedtime SSI - Hypoglycemia protocol, ACHS checks - DM education HTN - Continue home meds - Monitor vitals Arm pain, resolved -L head, jaw, neck, arm, leg pain while watching TV, resolved. EKG shows complete RBBB and nonspecific T wave changes. Considering significant heart hx: CAD, [place] with 4 vessel CABG, will do ACS workup if he ever develops CP Chronic conditions CAD: continue home meds Glaucoma: continue home meds. 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 Glass. I agree with the History, Examination, Assessment and Plan documented above with any addition or exceptions noted below. Weakness has resolved. MRI negative for stroke. Symptoms sound consistent with TIA. awaiting echo but suspect home later today
[2020-11-11] MEDS ORDERED: Atorvastatin Calcium 20 MG TAB PO SCH (09:00)
[2020-11-11] MEDS ORDERED: Fluticasone Propionate Nasal Spray 16 gm Bottle NASAL SCH (09:00)
[2020-11-11] MEDS ORDERED: Lisinopril 5 MG TAB PO SCH (09:00)
[2020-11-11] MEDS ORDERED: Aspirin 325 MG TAB PO SCH (09:00)
[2020-11-11] MEDS ORDERED: Spironolactone 25 MG TAB PO SCH (09:00)
[2020-11-11] MEDS ORDERED: Loratadine 10 MG TAB PO SCH (09:00)
[2020-11-11] MEDS: Enoxaparin Sodium 40 MG/0.4 ML SYRINGE SC SCH (09:04)
[2020-11-11] MEDS: NPH, Human Insulin Isophane 300 UNIT/3 ML VIAL SC SCH (09:04)
[2020-11-11] MEDS: metFORMIN 500 MG TAB PO SCH (09:05)
[2020-11-11] MEDS: glipiZIDE 5 MG TAB PO SCH (09:06)
[2020-11-11] MEDS: Metoprolol Tartrate 25 MG TAB PO SCH (09:07)
[2020-11-11] MEDS: Clopidogrel Bisulfate 75 MG TAB PO SCH (11:31)
--- NOTE | 2020-11-11 13:19 | CT ---
EXAM: CT head without IV contrast CT angiogram head and neck with IV contrast and 3-D reconstructions PROVIDED CLINICAL HISTORY: Left arm and jaw pain. Brief episode of confusion and word finding difficulties. COMPARISON: Noncontrast CT head on 11/09/2020 FINDINGS: Noncontrast CT head: There is no evidence of a hemorrhage, acute cortical infarction, mass effect, or midline shift. Scatt ered minimal hypodensities are seen within the periventricular and subcortical white matter which are nonspecific but likely reflective of mild chronic small vessel ischemic changes. Mild cerebral vo lume loss is present. The ventricular system is normal in size, shape, and position. Small mucous retention cysts present right maxillary antrum. No significant interval change from prio r exam. CT angiogram head and neck: Prominent vascular calcifications are seen in the aortic arch and involving the coronary arteries. Po stoperative changes related to CABG are noted. Common origin of the innominate and left common carotid artery are noted. There is partial obscuratio n of portions of the most proximal left common carotid artery as well as left subclavian artery due to dense venous contrast resulting in artifact through these regions. However, the visualized portion s of the left subclavian artery are patent. The innominate and right subclavian artery are patent. Bilateral common carotid arteries are patent. Minimal vascular calcifications are seen at the carotid artery bifurcations. Bilateral internal carotid arteries are patent. The bilateral vertebral arteries are patent. The left vertebral artery is dominant. The basilar artery and posterior cerebral arteries are patent. Dense vascular calcifications are seen in the carotid siphons. The bilateral middle cerebral and anterior cerebral arteries are patent. No focal stenosis or branch occlusion is seen. No intracranial aneurysm is seen. There were groundglass densities seen throughout the visualized upper lung zones, but this exam is ob tained in expiratory phase imaging, and findings are likely attributable to volume loss. IMPRESSION: 1. No acute intracranial abnormality is demonstrated. 2. No focal stenosis or branch occlusion is seen involving the vertebral basilar system or [place]. 3. Patent bilateral internal carotid arteries. Transcribed Date/Time: 11/11/2020 1:19 PM
[2020-11-11 16:46] VITALS: BP 126/62; TEMP 98
--- NOTE | 2020-11-13 11:57 | DIS ---
DATE OF ADMISSION: 11/11/2020 DATE OF DISCHARGE: 11/11/2020 RESIDENT: Alana Glass MD, PGY-1 ADMITTING ATTENDING: Roxanne Brooks MD DISCHARGE ATTENDING: Roxanne Brooks MD CONSULTS: None. PROCEDURES: 1. Brain CT on 11/09/2020, which showed no CT evidence of acute intracranial process. 2. Chest x-ray on 11/09/2020, which showed no acute process. 3. CT angiography, 11/10/2020, which showed no acute intracranial abnormality. No focal stenosis or branch occlusion is seen involving the vertebral basilar system or [place]. Patent bilateral internal carotid arteries. 4. Brain MRI on 11/10/2020, which showed no acute intracranial abnormality. Chronic small vessel ischemic changes and cerebral volume loss. Linear area of hemosiderin deposition in inferior left anterior frontal lobe. 5. Echocardiogram on 11/11/2020, which showed EF at 60% to 65%. Normal right ventricular size and function. Left atrium is mild to moderately dilated, mildly enlarged right atrium size, structurally normal mitral valve. Trivial aortic regurgitation is noted. Mild tricuspid regurgitation. Mild pulmonic regurgitation is present. PRIMARY DIAGNOSIS: Transient ischemic attack. SECONDARY DIAGNOSES: 1. Type 2 diabetes. 2. Hypertension. 3. Arm pain, resolved. 4. Coronary artery disease. 5. Glaucoma. 6. History of renal stones. DISCHARGE MEDICATIONS: 1. Glipizide 5 mg p.o. b.i.d. 2. Lipitor 40 mg p.o. daily. 3. Aldactone 25 mg p.o. daily. 4. Acarbose 50 mg p.o. t.i.d. with meals. 5. Metoprolol tartrate 37.5 mg p.o. b.i.d. 6. Imdur 30 mg p.o. daily. 7. Prilosec 20 mg p.o. daily. 8. Claritin 10 mg p.o. daily. 9. Latanoprost one drop each eye at bedtime. 10. Lisinopril 5 mg p.o. daily. 11. Tramadol 50 mg p.o. every 6 hours p.r.n. 12. Glipizide/metformin one tab p.o. b.i.d. 13. Clopidogrel 75 mg p.o. daily. 14. Insulin Novolin 45 units subcutaneous b.i.d. 15. Trulicity 0.75 every seven days. 16. Fluticasone 9.9 mL nasal spray daily. 17. Aspirin 325 mg p.o. daily. DISCONTINUED MEDICATION: Atorvastatin 20 mg p.o. at bedtime. HISTORY OF PRESENT ILLNESS/HOSPITAL COURSE: The patient is a 75-year-old male with past medical history of CAD, type 2 diabetes, history of [place] with four-vessel CABG, who presents to the ER, which he had a chief complaint of left temporal neck, jaw, arm and leg pain. He states the pain started two days ago when he was watching TV and has been constant, although Tylenol and aspirin has helped. He describes pain is dull. He came in today because he felt like the pain was getting worse, rating it 6/10, Tylenol did not help. He describes an episode of confusion on the day of admission. He says he was texting a friend and all of a sudden he felt confused and was not able to type up the words. However, he was able to talk to his son and tell him he wanted to go to the hospital. He reports some weakness in his left leg. Denies any fevers, chills, chest pain, abdominal pain, palpitations, lower extremity swelling. Denies history of stroke, however, his 69-year-old brother does have a history. In the ED, the patient received Tylenol, metoclopramide 10 mg IV. At first, it was concerned that the patient may have ACS versus the stroke. However, the patient never actually had chest pain and his troponins were negative, so a stroke workup was pursued. Imaging was negative as noted above. The patient was optimized with aspirin and statin. The patient is already on home Plavix. The patient denied any further episodes of stroke or confusion and states he felt much better after a night's stay. He never had any chest pain or shortness of breath. DISPOSITION: Stable. DISCHARGE INSTRUCTIONS: 1. Location: Home. 2. Diet: Diabetic diet, heart healthy diet, low-sodium diet. No added salt. 3. Activity: As tolerated. FOLLOWUP: Followup with PCP, Dr. Coronel, within 10 days for hospital followup and medical management given the patient's TIA. Job ID: [id number] [facility]ITAL[facility]en
== END 2020-11-11 17:46 | disposition home or self-care (01) | DRG 69 ==
LOC: ERS 20:07 → ERHOLD 23:40 → INTOOBSV 23:44 → UNDOADMOB 23:44 → 2NO 11-10 19:47 → OBSVTOIN 11-11 09:52
PROVIDERS: ADMIT Family Medicine; ATTEND Family Medicine
DX: G45.9 Transient cerebral ischemic attack, unspecified (principal); I25.10 Atherosclerotic heart disease of native coronary artery without angina pectoris; Z20.822 Contact with and (suspected) exposure to COVID-19; E11.9 Type 2 diabetes mellitus without complications; H40.9 Unspecified glaucoma; I45.10 Unspecified right bundle-branch block; M79.602 Pain in left arm; I25.2 Old myocardial infarction; Z95.1 Presence of aortocoronary bypass graft; Z79.82 Long term (current) use of aspirin; Z79.899 Other long term (current) drug therapy; Z79.4 Long term (current) use of insulin; Z87.442 Personal history of urinary calculi; Z90.49 Acquired absence of other specified parts of digestive tract
CPT/HCPCS: 36415; 36416; 70450; 70496; 70498; 70551; 71045; 80053; 80061; 83036; 83880; 84484; 85025; 87635; 90715; 93005; 93306; 96365; 96372; G0378; J1650; J1815; J2765; Q9967; U0003; U0005